=== PATIENT | male | born 1970 | race Caucasian/White ===

== ENCOUNTER 2020-10-08 08:46 | Emergency (ER) | payer SELFPAY ==
[2020-10-08] MEDS ORDERED: MORPHINE 4 MG/ML SYR ONE (09:42)
[2020-10-08] MEDS ORDERED: DIAZEPAM 2 MG TABLET ONE (09:42)
--- NOTE | 2020-10-08 10:44 | ER ---
Nurse's Notes [facility] Name: Oscar Rodriguez IV Age: 50 yrs Sex: Male : 1970 Arrival Date: 10/08/2020 Time: 08:50 Bed 15 Private MD: Diagnosis: Fracture of unspecified part of scapula, left shoulder;Fall on same level from slipping, tripping and stumbling with subsequent striking against other object Presentation: 10/08 09:23 Chief complaint: Patient states: slipped and fell in the bathtub last night, denies sv LOC. c/o left shoulder pain. Ibuprofen taken last night. Care prior to arrival: None. Mechanism of Injury: Fall from standing position. Trauma event details: Injury occurred in the [facility], Injury occurred: at home. Injury occurred: October 07, 2020. 09:23 Acuity: LINN 3 sv 09:23 Method Of Arrival: Ambulatory sv 09:24 Coronavirus screen: Client denies travel out of the [place] in the last 14 days. At this sv time, the client does not indicate any symptoms associated with coronavirus-19. Ebola Screen: No symptoms or risks identified at this time. Initial Sepsis Screen: Does the patient meet any 2 criteria? No. Patient's initial sepsis screen is negative. Does the patient have a suspected source of infection? No. Patient's initial sepsis screen is negative. Risk Assessment: Do you want to hurt yourself or someone else? Patient reports no desire to harm self or others. Onset of symptoms was October 07, 2020. Trauma Activation: Not Applicable Physician: ED Physician; Name: ; Notified At: ; Arrived At: Physician: General Surgeon; Name: ; Notified At: ; Arrived At: Physician: Radiology; Name: ; Notified At: ; Arrived At: Physician: Respiratory; Name: ; Notified At: ; Arrived At: Physician: Lab; Name: ; Notified At: ; Arrived At: Historical: - Allergies: : PENICILLINS; sv - PMHx: : None; sv - PSHx: : leg; sv - Immunization history:: Adult Immunizations up to date. - Social history:: Smoking status: Patient reports the use of cigarette tobacco products, denies chronic smoking, but will smoke occasionally. Screenin:25 Abuse screen: Denies threats or abuse. Denies injuries from another. Nutritional sv screening: No deficits noted. Tuberculosis screening: No symptoms or risk factors identified. Fall Risk None identified. Primary Survey: 09:23 NO uncontrolled hemorrhage observed. A: The patient is alert. Airway: patent, No sv supplemental oxygen in use on arrival. Oral cavity: clear, Trachea midline. Breathing/Chest: Respiratory pattern: regular, Respiratory effort: spontaneous, unlabored, Chest inspection: symmetrical rise and fall of the chest. Circulation: Skin color: pink, Skin temperature: warm, dry. Disability Alert. Exposure/Environment: All clothing and personal items were removed. Forensic evidence collection is not deemed to be indicated at this time. Items placed in patient belonging bag. There is no evidence of uncontrolled external bleeding. A warming method has been applied: A warm blanket has been provided to the patient. 10:20 Reassessment Airway Airway Patent Oxygen No O2 Oral cavity Clear Trachea Midline sv Breathing/Chest Respiratory pattern Regular Respiratory effort Spontaneous Unlabored Chest inspection Symmetrical Circulation Color [place] Temperature Warm Dry Disability Alert. Secondary Survey: :23 HEENT: No deficits noted. Gastrointestinal: No deficits noted. : No deficits noted. sv No signs and/or symptoms were reported regarding the genitourinary system. Musculoskeletal: Range of motion: limited in left shoulder. Vital Signs: 09:24 BP 154 / 100; Pulse 84; Resp 18; Pulse Ox 97% ; Weight 102.06 kg; Height 5 ft. 9 in. sv (175.26 cm); Pain 9/10; 09:24 Body Mass Index 33.23 (102.06 kg, 175.26 cm) sv [place] Coma Score: 09:24 Eye Response: spontaneous(4). Verbal Response: oriented(5). Motor Response: obeys sv commands(6). Total: 15. Trauma Score (Adult): 09:24 Eye Response: spontaneous(1); Verbal Response: oriented(1); Motor Response: obeys sv commands(2); Systolic BP: > 89 mm Hg(4); Respiratory Rate: 10 to 29 per min(4); [place] Score: 15; Trauma Score: 12 ED Course: 08:50 Patient arrived in ED. rg4 08:57 Mar[facility] Hogan F[facility]-C [facility]. snw 08:57 Osiel Ayala MD is Attending Physician. snw 09:23 Ashleigh Holly, ROMERO is Primary Nurse. sv 09:24 Triage completed. sv 09:24 Patient maintains SpO2 saturation greater than 95% on room air. Thermoregulation: warm sv blanket given to patient. 09:25 Arm band placed on. sv 09:25 Patient has correct armband on for positive identification. Bed in low position. Call sv light in reach. Pulse ox on. NIBP on. Door closed. Head of bed elevated. 09:43 Awaiting for x-ray. sv 10:33 Scapula Left XRAY In Process Unspecified. EDMS 10:33 Chest Pa And Lat (2 Views) XRAY In Process Unspecified. EDMS 10:43 Luther Trimble MD is Referral Physician. snw 11:21 Sling applied to left arm. sv 11:21 No provider procedures requiring assistance completed. Patient did not have IV access sv during this emergency room visit. Administered Medications: 09:36 Drug: morphine 4 mg {Note: rass1.} Route: IM; Site: right deltoid; sv 11:21 Follow up: Response: No adverse reaction; RASS: Alert and Calm (0) sv 09:36 Drug: Valium 2 mg Route: PO; sv 11:21 Follow up: Response: No adverse reaction sv Intake: 09:24 PO: 0ml; Total: 0ml. sv Output: 09:24 Urine: 0ml; Total: 0ml. sv Outcome: 10:44 Discharge ordered by MD. snw 11:21 Discharged to home ambulatory, with family. sv 11:21 Condition: stable 11:21 Discharge instructions given to patient, family, Instructed on discharge instructions, follow up and referral plans. no drinking with medication, no driving heavy equipment, medication usage, sling application Demonstrated understanding of instructions, follow-up care, medications, sling application Prescriptions given X 2. 11:21 Patient's length of stay was not longer than 2 hours. sv 11:22 Patient left the ED. sv Signatures: Dispatcher [employer] EDAshleigh Peace RN RN sv Waters, Shelly, SHIPPING TEAM LEADER-C SHIPPING TEAM LEADER-Faviola Peraza rg4 Corrections: (The following items were deleted from the chart) 19:52 19:51 Patient's length of stay was not longer than 2 hours. sv sv
--- NOTE | 2020-10-08 10:44 | EDPHYS ---
Physician Documentation [facility] Name: Oscar Rodriguez IV Age: 50 yrs Sex: Male : 1970 Arrival Date: 10/08/2020 Time: 08:50 Bed 15 Private MD: ED Physician Osiel Ayala HPI: 10/08 09:42 This 50 yrs old Male presents to ER via Ambulatory with complaints of Fall snw Injury, Arm Pain. 09:42 Details of fall: The patient fell from an upright position, slipped in shower and snw struck shoulder on tub ledge. Onset: The symptoms/episode began/occurred suddenly, last night. Associated injuries: The patient sustained left arm, contusion, decreased range of motion, painful injury. Severity of symptoms: At their worst the symptoms were moderate, severe. The patient has not experienced similar symptoms in the past. It is unknown whether or not the patient has recently seen a physician. Historical: - Allergies: 09:25 PENICILLINS; sv - PMHx: 09:25 None; sv - PSHx: 09:25 leg; sv - Immunization history:: Adult Immunizations up to date. - Social history:: Smoking status: Patient reports the use of cigarette tobacco products, denies chronic smoking, but will smoke occasionally. ROS: 09:41 Constitutional: Negative for fever, chills, and weight loss, Eyes: Negative for injury, snw pain, redness, and discharge, ENT: Negative for injury, pain, and discharge, Neck: Negative for injury, pain, and swelling, Cardiovascular: Negative for chest pain, palpitations, and edema, Respiratory: Negative for shortness of breath, cough, wheezing, and pleuritic chest pain, Abdomen/GI: Negative for abdominal pain, nausea, vomiting, diarrhea, and constipation, Back: Negative for injury and pain, : Negative for injury, bleeding, discharge, and swelling, Skin: Negative for injury, rash, and discoloration, Neuro: Negative for headache, weakness, numbness, tingling, and seizure, Psych: Negative for depression, anxiety, suicide ideation, homicidal ideation, and hallucinations. 09:41 MS/extremity: Positive for injury or acute deformity, decreased range of motion, pain, tenderness, of the left arm. Exam: 09:40 Head/Face: Normocephalic, atraumatic. Eyes: Pupils equal round and reactive to light, snw extra-ocular motions intact. Lids and lashes normal. Conjunctiva and sclera are non-icteric and not injected. Cornea within normal limits. Periorbital areas with no swelling, redness, or edema. ENT: Nares patent. No nasal discharge, no septal abnormalities noted. Tympanic membranes are normal and external auditory canals are clear. Oropharynx with no redness, swelling, or masses, exudates, or evidence of obstruction, uvula midline. Mucous membranes moist. Neck: Trachea midline, no thyromegaly or masses palpated, and no cervical lymphadenopathy. Supple, full range of motion without nuchal rigidity, or vertebral point tenderness. No Meningismus. Chest/axilla: Normal chest wall appearance and motion. Nontender with no deformity. No lesions are appreciated. Cardiovascular: Regular rate and rhythm with a normal S1 and S2. No gallops, murmurs, or rubs. Normal PMI, no JVD. No pulse deficits. Respiratory: Lungs have equal breath sounds bilaterally, clear to auscultation and percussion. No rales, rhonchi or wheezes noted. No increased work of breathing, no retractions or nasal flaring. Abdomen/GI: Soft, non-tender, with normal bowel sounds. No distension or tympany. No guarding or rebound. No evidence of tenderness throughout. Back: No spinal tenderness. No costovertebral tenderness. Full range of motion. Skin: Warm, dry with normal turgor. Normal color with no rashes, no lesions, and no evidence of cellulitis. Neuro: Awake and alert, GCS 15, oriented to person, place, time, and situation. Cranial nerves II-XII grossly intact. Motor strength 5/5 in all extremities. Sensory grossly intact. Cerebellar exam normal. Normal gait. Psych: Awake, alert, with orientation to person, place and time. Behavior, mood, and affect are within normal limits. 09:40 Constitutional: The patient appears alert, awake, uncomfortable. 09:40 Musculoskeletal/extremity: Extremities: grossly normal except: noted in the left axilla: decreased ROM, Circulation is intact in all extremities. Sensation intact. exquisite tenderness over left scapula s/p slip and fall in bathtub last pm. Vital Signs: 09:24 BP 154 / 100; Pulse 84; Resp 18; Pulse Ox 97% ; Weight 102.06 kg; Height 5 ft. 9 in. sv (175.26 cm); Pain 9/10; 09:24 Body Mass Index 33.23 (102.06 kg, 175.26 cm) sv [place] Coma Score: 09:24 Eye Response: spontaneous(4). Verbal Response: oriented(5). Motor Response: obeys sv commands(6). Total: 15. Trauma Score (Adult): 09:24 Eye Response: spontaneous(1); Verbal Response: oriented(1); Motor Response: obeys sv commands(2); Systolic BP: > 89 mm Hg(4); Respiratory Rate: 10 to 29 per min(4); [place] Score: 15; Trauma Score: 12 MDM: 09:14 Patient medically screened. snw 10:45 Data reviewed: vital signs, nurses notes, radiologic studies, plain films, + tip of snw left scapula fx. Data interpreted: Pulse oximetry: on room air is 97 %. Interpretation: normal. Counseling: I had a detailed discussion with the patient and/or guardian regarding: the historical points, exam findings, and any diagnostic results supporting the discharge/admit diagnosis, the presence of at least one elevated blood pressure reading (>120/80) during this emergency department visit, radiology results, the need for outpatient follow up, to return to the emergency department if symptoms worsen or persist or if there are any questions or concerns that arise at home. Special discussion: Based on the patient's history, exam, and Dx evaluation, there is no indication for emergent intervention or inpatient Tx. It is understood by the patient/guardian that if the Sx's persist or worsen they need to return immediately for re-evaluation. I have referred the patient to see his PCP for further evaluation of high blood pressure. Based on the history and exam findings, there is no indication for further emergent testing or inpatient evaluation. I discussed with the patient/guardian the need to see the orthopedic surgeon for further evaluation of the symptoms. I discussed with the patient/guardian the need to see the primary care provider for further evaluation of the symptoms. 10/08 09:21 Order name: Scapula Left XRAY; Complete Time: 11:13 snw 10/08 09:21 Order name: Chest Pa And Lat (2 Views) XRAY; Complete Time: 11:05 snw 01/04 10:42 Order name: Sling snw 10/08 10:46 Order name: INCENTIVE SPIROMETRY sn Administered Medications: 09:36 Drug: morphine 4 mg {Note: rass1.} Route: IM; Site: right deltoid; sv 11:21 Follow up: Response: No adverse reaction; RASS: Alert and Calm (0) sv 09:36 Drug: Valium 2 mg Route: PO; sv 11:21 Follow up: Response: No adverse reaction sv Disposition: 16:32 Co-signature as Attending Physician, Osiel Ayala MD I agree with the assessment and catrachito plan of care. Disposition: 10/08/20 10:44 Discharged to Home. Impression: Fracture of unspecified part of scapula, left shoulder, Fall on same level from slipping, tripping and stumbling with subsequent striking against other object. - Condition is Stable. - Discharge Instructions: Scapular Fracture, Incentive Spirometer, How to Use a Sling. - Prescriptions for Mobic 7.5 mg Oral Tablet - take 1 tablet by ORAL route once daily take with food; 20 tablet. Tylenol- Codeine #3 300-30 mg Oral Tablet - take 2 tablet by ORAL route every 6 hours As needed; 30 tablet. - Work release form, Medication Reconciliation Form, Thank You Letter, Antibiotic Education, Prescription Opioid Use form. - Follow up: Emergency Department; When: As needed; Reason: Worsening of condition. Follow up: Private Physician; When: 1 - 2 days; Reason: Recheck today's complaints, Continuance of care, Re-evaluation by your physician. Follow up: Luther Trimble MD; When: 2 - 3 days; Reason: Recheck today's complaints, Continuance of care. Signatures: Dispatcher [employer] Ashleigh Pinzon RN RN sv Anderson, Corey, MD MD cha Waters, Shelly, TEACHER INSTRUMENTAL-C TEACHER INSTRUMENTAL-Csnw Corrections: (The following items were deleted from the chart) 11:22 10:44 10/08/2020 10:44 Discharged to Home. Impression: Fracture of unspecified part of sv scapula, left shoulder; Fall on same level from slipping, tripping and stumbling with subsequent striking against other object. Condition is Stable. Forms are Medication Reconciliation Form, Thank You Letter, Antibiotic Education, Prescription Opioid Use. Follow up: Emergency Department; When: As needed; Reason: Worsening of condition. Follow up: Private Physician; When: 1 - 2 days; Reason: Recheck today's complaints, Continuance of care, Re-evaluation by your physician. Follow up: Luther Trimble; When: 2 - 3 days; Reason: Recheck today's complaints, Continuance of care. hortencia
--- NOTE | 2020-10-08 11:03 | RAD REPORT ---
EXAM DESCRIPTION: RAD - Chest Pa And Lat (2 Views) - 10/08/2020 10:35 am CLINICAL HISTORY: BLUNT CHEST TRAUMA Chest pain. COMPARISON: Scapula Left dated 10/08/2020 FINDINGS: The lungs are clear. The heart is normal in size. No displaced fractures. IMPRESSION: No acute or concerning finding suspected.
--- NOTE | 2020-10-08 11:04 | RAD REPORT ---
EXAM DESCRIPTION: RAD - Scapula Left - 10/08/2020 10:40 am CLINICAL HISTORY: PAIN COMPARISON: No comparisons FINDINGS: Mild glenohumeral and AC joint degenerative changes. Oblique lucency in the very inferior aspect of the scapula is compatible with a fracture. IMPRESSION: Mild oblique fracture inferior most aspect of the scapula.
== END 2020-10-08 11:22 | disposition home or self-care (01) ==
LOC: ER 08:46
PROC: 2W39X1Z Immobilization of Left Upper Extremity using Splint (ICD-10-PCS; principal; 2020-10-08)
DX: S42.102A Fracture of unspecified part of scapula, left shoulder, initial encounter for closed fracture (principal); W01.198A Fall on same level from slipping, tripping and stumbling with subsequent striking against other object, initial encounter; Y93.E1 Activity, personal bathing and showering; Y92.002 Bathroom of unspecified non-institutional (private) residence as the place of occurrence of the external cause; Z88.0 Allergy status to penicillin; F17.210 Nicotine dependence, cigarettes, uncomplicated
CPT/HCPCS: 71046; 73010; 96372; 99284

== ENCOUNTER 2021-08-30 11:34 | Emergency (ER) | payer SELFPAY ==
--- NOTE | 2021-08-30 13:32 | RAD REPORT ---
EXAM DESCRIPTION: Meredith Single View08/30/2021 1:10 pm CLINICAL HISTORY: Cough COMPARISON: October 2020 FINDINGS: The lungs appear clear of acute infiltrate. The heart is probably mildly enlarged IMPRESSION: No acute abnormalities displayed
--- NOTE | 2021-08-30 13:47 | ER ---
Nurse's Notes [facility] Name: Oscar Rodriguez IV Age: 51 yrs Sex: Male : 1970 Arrival Date: 08/30/2021 Time: 11:35 Bed 10 Private MD: Felix Ricci Diagnosis: Acute bronchitis, unspecified;Cough Presentation: 08/30 11:40 Chief complaint: Patient states: productive cough that began Last Thursday. Denies fever. ss Coronavirus screen: Client denies travel out of the [place] in the last 14 days. Client presents with at least one sign or symptom that may indicate coronavirus-19. Ebola Screen: Patient denies exposure to infectious person. Patient denies travel to an Ebola-affected area in the 21 days before illness onset. Resp Distress? No respiratory distress is noted at this time. Initial Sepsis Screen: Does the patient meet any 2 criteria? No. Patient's initial sepsis screen is negative. Does the patient have a suspected source of infection? No. Patient's initial sepsis screen is negative. Risk Assessment: Do you want to hurt yourself or someone else? Patient reports no desire to harm self or others. Onset of symptoms was August 23, 2021. 11:40 Method Of Arrival: Ambulatory ss 11:40 Acuity: LINN 4 ss Historical: - Allergies: 11:41 PENICILLINS; ss - Home Meds: 11:41 None [Active]; ss - PMHx: 11:41 None; ss - PSHx: 11:41 None; ss - Immunization history:: Client reports receiving the 2nd dose of the Covid vaccine. - Social history:: Smoking status: Patient reports the use of cigarette tobacco products, denies chronic smoking, but will smoke occasionally. Screenin:43 Abuse screen: Denies threats or abuse. Denies injuries from another. Nutritional ss screening: No deficits noted. Tuberculosis screening: Never had TB. Fall Risk None identified. Assessment: 11:45 General: Appears in no apparent distress. comfortable, Behavior is calm, cooperative, ss Denies fever, feeling ill, fatigue, chills. Pain: Denies pain. Neuro: Level of Consciousness is awake, alert, obeys commands, Oriented to person, place, time, situation, Speech is normal. Cardiovascular: Capillary refill < 3 seconds is brisk in bilateral fingers Patient's skin is warm and dry. Respiratory: Reports cough that is since x 1 week Airway is patent Respiratory effort is even, unlabored, Respiratory pattern is regular, symmetrical, Breath sounds are clear bilaterally. GI: Patient currently denies abdominal pain, diarrhea, nausea, vomiting. EENT: Oral mucosa is moist. Throat is clear. Derm: Skin is intact, is healthy with good turgor, Skin is pink, warm \T\ dry. normal. Vital Signs: 11:40 Weight 104.33 kg; Height 5 ft. 9 in. (175.26 cm); Pain 0/10; ss 11:42 Pulse 75; Resp 16; Temp 98.1(TE); Pulse Ox 95% on R/A; ss 11:44 BP 184 / 101; ss 11:40 Body Mass Index 33.96 (104.33 kg, 175.26 cm) ss ED Course: 11:35 Patient arrived in ED. as 11:36 Felix Ricci is Private Physician. as 11:41 Triage completed. ss 11:41 Arm band placed on right wrist. ss 11:43 Patient has correct armband on for positive identification. Bed in low position. Call ss light in reach. 11:47 Jordi Durant MD is Attending Physician. kdr 13:10 CXR XRAY In Process Unspecified. EDMS 13:54 Jaqui Cannon, ROMERO is Primary Nurse. ss 13:54 No provider procedures requiring assistance completed. Patient did not have IV access ss during this emergency room visit. Administered Medications: No medications were administered Outcome: 13:46 Discharge ordered by . kdr 13:54 Discharged to home ambulatory. ss 13:54 Condition: good 13:54 Discharge instructions given to patient, Instructed on discharge instructions, follow up and referral plans. Demonstrated understanding of instructions, follow-up care, medications. 13:55 Patient left the ED. ss Signatures: Dispatcher [employer] EDMS Jordi Durant MD MD kdr Abiola Grullon as Jaqui Cannon, ROMERO RN ss
--- NOTE | 2021-08-30 13:47 | EDPHYS ---
Physician Documentation [facility] Name: Oscar Rodriguez IV Age: 51 yrs Sex: Male : 1970 Arrival Date: 08/30/2021 Time: 11:35 Bed 10 Private MD: Felix Ricci ED Physician Jordi Durant HPI: 08/30 12:46 This 51 yrs old Male presents to ER via Ambulatory with complaints of Cough, Congestion.kdr 12:46 The patient or guardian reports cough, that is intermittent, described as mild, kdr difficulty breathing. Onset: The symptoms/episode began/occurred gradually, 1 week(s) ago. Severity of symptoms: At their worst the symptoms were mild, moderate, just prior to arrival, in the emergency department the symptoms are unchanged. Associated signs and symptoms: The patient has no apparent associated signs or symptoms. The patient has not experienced similar symptoms in the past. The patient has not recently seen a physician. Patient states that over the past week he has had increasing cough and congestion. He has had chills and rigors but no fever. He is concerned that he may have a sinus infection. He is unvaccinated for Covid.. Historical: - Allergies: 11:41 PENICILLINS; ss - Home Meds: 11:41 None [Active]; ss - PMHx: 11:41 None; ss - PSHx: 11:41 None; ss - Immunization history:: Client reports receiving the 2nd dose of the Covid vaccine. - Social history:: Smoking status: Patient reports the use of cigarette tobacco products, denies chronic smoking, but will smoke occasionally. ROS: 12:46 Constitutional: Negative for fever, chills, and weight loss, Eyes: Negative for injury, kdr pain, redness, and discharge, ENT: Negative for injury, pain, and discharge, Neck: Negative for injury, pain, and swelling, Cardiovascular: Negative for chest pain, palpitations, and edema, Abdomen/GI: Negative for abdominal pain, nausea, vomiting, diarrhea, and constipation, Back: Negative for injury and pain, MS/Extremity: Negative for injury and deformity, Skin: Negative for injury, rash, and discoloration, Neuro: Negative for headache, weakness, numbness, tingling, and seizure activity. Psych: Negative for depression, anxiety, suicide ideation, homicidal ideation, and hallucinations, Allergy/Immunology: Negative for hives, rash, and allergies, Endocrine: Negative for neck swelling, polydipsia, polyuria, polyphagia, and marked weight changes, Hematologic/Lymphatic: Negative for swollen nodes, abnormal bleeding, and unusual bruising. 12:46 Respiratory: Positive for cough, with yellow sputum, wheezing, inspiratory, of the right posterior upper lobe, right posterior middle lobe and right posterior lower lobe, Negative for hemoptysis, orthopnea, pleurisy. Exam: 12:46 Constitutional: This is a well developed, well nourished patient who is awake, alert, kdr and in no acute distress. Head/Face: Normocephalic, atraumatic. Eyes: Pupils equal round and reactive to light, extra-ocular motions intact. Lids and lashes normal. Conjunctiva and sclera are non-icteric and not injected. Cornea within normal limits. Periorbital areas with no swelling, redness, or edema. Neck: Trachea midline, no thyromegaly or masses palpated, and no cervical lymphadenopathy. Supple, full range of motion without nuchal rigidity, or vertebral point tenderness. No Meningismus. Chest/axilla: Normal chest wall appearance and motion. Nontender with no deformity. No lesions are appreciated. Cardiovascular: Regular rate and rhythm with a normal S1 and S2. No gallops, murmurs, or rubs. Normal PMI, no JVD. No pulse deficits. Abdomen/GI: Soft, non-tender, with normal bowel sounds. No distension or tympany. No guarding or rebound. No evidence of tenderness throughout. Back: No spinal tenderness. No costovertebral tenderness. Full range of motion. Skin: Warm, dry with normal turgor. Normal color with no rashes, no lesions, and no evidence of cellulitis. MS/ Extremity: Pulses equal, no cyanosis. Neurovascular intact. Full, normal range of motion. Neuro: Awake and alert, GCS 15, oriented to person, place, time, and situation. Cranial nerves II-XII grossly intact. Motor strength 5/5 in all extremities. Sensory grossly intact. Cerebellar exam normal. Normal gait. Psych: Awake, alert, with orientation to person, place and time. Behavior, mood, and affect are within normal limits. 12:46 Respiratory: the patient does not display signs of respiratory distress, Respirations: normal, Breath sounds: wheezing: inspiratory is scattered, is heard in the right posterior upper lobe, right posterior middle lobe and right posterior lower lobe. Vital Signs: 11:40 Weight 104.33 kg; Height 5 ft. 9 in. (175.26 cm); Pain 0/10; ss 11:42 Pulse 75; Resp 16; Temp 98.1(TE); Pulse Ox 95% on R/A; ss 11:44 BP 184 / 101; ss 11:40 Body Mass Index 33.96 (104.33 kg, 175.26 cm) ss MDM: 12:46 Data reviewed: vital signs, nurses notes, lab test result(s), radiologic studies. kdr Counseling: I had a detailed discussion with the patient and/or guardian regarding: the historical points, exam findings, and any diagnostic results supporting the discharge/admit diagnosis, lab results, radiology results. 13:46 Patient medically screened. kdr 08/30 12:12 Order name: SARS-COV-2 RT PCR; Complete Time: 13:24 EDAR 08/30 12:42 Order name: CXR XRAY; Complete Time: 13:45 kdr Administered Medications: No medications were administered Disposition Summary: 08/30/21 13:46 Discharge Ordered Location: Home kdr Problem: new kdr Symptoms: have improved kdr Condition: Stable kdr Diagnosis - Acute bronchitis, unspecified kdr - Cough kdr Followup: kdr - With: Private Physician - When: 2 - 3 days - Reason: If symptoms return, Further diagnostic work-up, Recheck today's complaints, Continuance of care, Re-evaluation by your physician Discharge Instructions: - Discharge Summary Sheet kdr - Acute Bronchitis, Adult kdr - Cough, Adult kdr Forms: - Medication Reconciliation Form kdr - Thank You Letter kdr Prescriptions: - Promethazine VC-Codeine 6.25-5-10 mg/5 mL Oral syrup - take 5 milliliter by ORAL route every 4-6 hours As needed as needed, not to kdr exceed 30 mL in 24 hours; 200 milliliter; Refills: 0, Product Selection Permitted - Medrol (Aleksandr) 4 mg Oral Tablets, Dose Pack - take 1 tablet by ORAL route as directed - follow package instructions; 1 kdr packet; Refills: 0, Product Selection Permitted Signatures: Dispatcher [employer] EDAR Rittger, Jordi, MD MD kdr Smirch, Jaqui, RN RN ss Corrections: (The following items were deleted from the chart) 12:12 11:49 CORONAVIRUS+.BRZ ordered. EDMS EDMS
[2021-08-30 14:02] VITALS: TEMP 98.1; O2SAT 95
[2021-08-30 14:03] VITALS: BP 184/101
== END 2021-08-30 13:55 | disposition home or self-care (01) ==
LOC: ER 11:34
DX: J20.9 Acute bronchitis, unspecified (principal); F17.210 Nicotine dependence, cigarettes, uncomplicated; Z20.822 Contact with and (suspected) exposure to COVID-19; Z88.0 Allergy status to penicillin
CPT/HCPCS: 71045; 99283; U0003

== ENCOUNTER 2024-06-04 21:07 | Emergency (ER) | payer SELFPAY ==
[2024-06-04] MEDS ORDERED: METHYLPREDNISOLONE 125 MG INJ ONE (21:10)
[2024-06-04] MEDS ORDERED: ALBUTEROL 2.5 MG/3 ML NEB SOL ONE (21:10)
[2024-06-04] MEDS ORDERED: FAMOTIDINE 20 MG/2 ML VIAL IV ONE ×2 (21:10→21:58)
[2024-06-04] MEDS ORDERED: DIPHENHYDRAMINE 50 MG/ML VIAL ONE (21:10)
[2024-06-04] MEDS ORDERED: NA CHLORIDE 0.9% 1,000 ML ONE (21:10)
[2024-06-04 21:39] LABS: Anion Gap 9.8 mEq/L (5.0-15.0); Potassium 4.8 mEq/L (3.5-5.1)
--- NOTE | 2024-06-04 23:15 | EDPHYS ---
Physician Documentation [facility] Name: Oscar Rodriguez IV Age: 53 yrs Sex: Male : 1970 Arrival Date: 06/04/2024 Time: 21:07 Bed 4 Private MD: ED Physician Connor Gregorio HPI: 06/04 21:14 This 53 yrs old Male presents to ER via Unassigned with complaints of acute sp4 allergic reaction . 06/05 00:24 53 -year-old male presents with acute diffuse redness and skin hives associated with sp4 patient with shortness of breath after he ate spices at the restaurant. Historical: - Allergies: 06/04 21:15 PENICILLINS; jj7 21:15 FOOD COLORING; jj7 - PMHx: 21:15 None; jj7 - PSHx: 21:15 BROKEN BONES (BILAT KNEES, ARMS, LEGS; jj7 - Immunization history:: Adult Immunizations not up to date, Client reports having NOT received the Covid vaccine. - Infectious Disease History:: Denies. - Social history:: Smoking status: Reported history of juuling and/or vaping. Patient/guardian denies using alcohol, street drugs, IV drugs. - Family history:: not pertinent. ROS: 06/05 00:24 Constitutional: Negative for fever, chills, and weight loss, positive skin rash sp4 positive hives positive redness , positive sensation of closing throat All other systems are negative, Exam: 00:24 Constitutional: This is a well developed, well nourished patient who is awake, alert, sp4 and in no acute distress. Head/Face: Normocephalic, atraumatic. Eyes: Pupils equal round and reactive to light, extra-ocular motions intact. Lids and lashes normal. Conjunctiva and sclera are not injected. Cornea within normal limits. Periorbital areas with no swelling, redness, or edema. ENT: Nares patent. No nasal discharge, no septal abnormalities noted. Tympanic membranes are normal and external auditory canals are clear. Oropharynx with no redness, swelling, or masses, exudates, or evidence of obstruction, uvula midline. Mucous membranes moist. Neck: Trachea midline, no thyromegaly or masses palpated, and no cervical lymphadenopathy. Supple, full range of motion without nuchal rigidity, or vertebral point tenderness. Chest/axilla: Normal chest wall appearance and motion. Nontender with no deformity. No lesions are appreciated. Cardiovascular: Regular rate and rhythm with a normal S1 and S2. No gallops, murmurs, or rubs. Normal PMI, no JVD. No pulse deficits. Respiratory: Lungs have equal breath sounds bilaterally, clear to auscultation and percussion. No rales, rhonchi or wheezes noted. No increased work of breathing, no retractions or nasal flaring. Abdomen/GI: Soft, with normal bowel sounds. No distension or tympany. No guarding or rebound. No evidence of tenderness throughout. Back: No spinal tenderness. No costovertebral tenderness. Skin: Warm, dry with normal turgor. Diffuse redness and diffuse allergic hives throughout. Including facial and bilateral eyelid swelling MS/ Extremity: Pulses equal, no cyanosis. Neurovascular intact. Full, normal range of motion. Neuro: Awake and alert, GCS 15, oriented to person, place, time, and situation. Cranial nerves II-XII grossly intact. Motor strength 5/5 in all extremities. Sensory grossly intact. Psych: Awake, alert, with orientation to person, place and time. Behavior, mood, and affect are within normal limits Vital Signs: 06/04 21:07 BP 149 / 76; Pulse 104; Resp 22; Temp 98.2; Pulse Ox 96% ; Weight 97.52 kg; Height 5 jj7 ft. 9 in. ; 22:30 BP 120 / 58; Pulse 84; Resp 18; Pulse Ox 95% on R/A; cp4 23:30 BP 136 / 60; Pulse 87; Resp 18; Pulse Ox 95% on R/A; cp4 21:07 Body Mass Index 31.75 (97.52 kg, 175.26 cm) jj7 [place] Coma Score: 06/05 00:24 Eye Response: spontaneous(4). Motor Response: obeys commands(6). Verbal Response: sp4 oriented(5). Total: 15. MDM: 06/04 21:27 Patient medically screened. sp4 06/05 00:26 Differential Diagnosis altered mental status, sepsis, flu, Acute allergic reaction. sp4 Data reviewed: vital signs, nurses notes, old medical records, lab test result(s). ED course: Positive acute allergic reaction. Patient has improved and is stable for discharge home. 06/04 21:10 Order name: BMP; Complete Time: 21:43 sp4 06/04 21:10 Order name: Saline Lock; Complete Time: 21:17 sp4 Administered Medications: 06/04 21:16 Drug: diphenhydrAMINE IVP 50 mg IVP once Route: IVP; Site: right antecubital; vc1 21:40 Follow up: Response: No adverse reaction cp4 21:16 Drug: MethylPrednisoLONE IVP 125 mg IVP once Route: IVP; Site: right antecubital; vc1 21:40 Follow up: Response: No adverse reaction cp4 21:16 Drug: NS 0.9% IV 1000 ml IV at 1 bolus Per protocol; 1000 mL bolus Route: IV; Rate: 1 vc1 bolus; Site: right antecubital; 22:20 Follow up: Response: No adverse reaction; IV Status: Completed infusion cp4 21:16 Drug: Famotidine IVP 20 mg IVP once; dilute with 10 mL 0.9% NaCl; give over 2 minutes vc1 Route: IVP; Site: right antecubital; 21:40 Follow up: Response: No adverse reaction cp4 21:17 Drug: Albuterol Inhalation 2.5 mg Inhalation every 20 minutes x3 Route: Inhalation; vc1 21:37 Drug: Albuterol Inhalation 2.5 mg Inhalation every 20 minutes x3 Route: Inhalation; cp4 21:53 Not Given (Physician Discretion): [id number] mg IVP once cp4 21:56 Drug: Albuterol Inhalation 2.5 mg Inhalation every 20 minutes x3 Route: Inhalation; cp4 22:20 Follow up: Response: No adverse reaction cp4 21:57 Drug: Famotidine IVP 20 mg IVP once; dilute with 10 mL 0.9% NaCl; give over 2 minutes cp4 Route: IVP; Site: right antecubital; 22:20 Follow up: Response: No adverse reaction cp4 Disposition Summary: 06/04/24 23:14 Discharge Ordered Notes: Location: Home sp4 Problem: new sp4 Symptoms: have improved sp4 Condition: Stable sp4 Diagnosis - Acute allergic reaction, acute allergic hives sp4 Followup: sp4 - With: Private Physician - When: 7 - 10 days - Reason: Recheck today's complaints Discharge Instructions: - Discharge Summary Sheet sp4 - Hives, [id number] sp4 Forms: - Patient Portal Instructions sp4 Prescriptions: - EpiPen 0.3 mg/0.3 mL Injection Auto-Injector - administer 0.3 milliliter INTRAMUSCULAR route every 4 hours as needed for sp4 anaphylaxis, Dispense 2-Pack; 1 Pack; Refills: 0, Product Selection Permitted - Prednisone 20 mg Oral Tablet - take 2 tablets ORAL route once daily for 5 days; 10 tablet; Refills: 0, Product sp4 Selection Permitted Signatures: Dispatcher [employer] EDMS Dyana Bueno RN RN vc1 Savanah Chao RN RN jj7 Connor Gregorio MD MD sp4 Susie Newman Corrections: (The following items were deleted from the chart) 06/05 00:27 00:24 Constitutional: This is a well developed, well nourished patient who is awake, sp4 alert, and in no acute distress. Head/Face: Normocephalic, atraumatic. Eyes: Pupils equal round and reactive to light, extra-ocular motions intact. Lids and lashes normal. Conjunctiva and sclera are not injected. Cornea within normal limits. Periorbital areas with no swelling, redness, or edema. ENT: Nares patent. No nasal discharge, no septal abnormalities noted. Tympanic membranes are normal and external auditory canals are clear. Oropharynx with no redness, swelling, or masses, exudates, or evidence of obstruction, uvula midline. Mucous membranes moist. Neck: Trachea midline, no thyromegaly or masses palpated, and no cervical lymphadenopathy. Supple, full range of motion without nuchal rigidity, or vertebral point tenderness. Chest/axilla: Normal chest wall appearance and motion. Nontender with no deformity. No lesions are appreciated. Cardiovascular: Regular rate and rhythm with a normal S1 and S2. No gallops, murmurs, or rubs. Normal PMI, no JVD. No pulse deficits. Respiratory: Lungs have equal breath sounds bilaterally, clear to auscultation and percussion. No rales, rhonchi or wheezes noted. No increased work of breathing, no retractions or nasal flaring. Abdomen/GI: Soft, with normal bowel sounds. No distension or tympany. No guarding or rebound. No evidence of tenderness throughout. Back: No spinal tenderness. No costovertebral tenderness. Skin: Warm, dry with normal turgor. Normal color with no rashes, no lesions, and no evidence of cellulitis. MS/ Extremity: Pulses equal, no cyanosis. Neurovascular intact. Full, normal range of motion. Neuro: Awake and alert, GCS 15, oriented to person, place, time, and situation. Cranial nerves II-XII grossly intact. Motor strength 5/5 in all extremities. Sensory grossly intact. Psych: Awake, alert, with orientation to person, place and time. Behavior, mood, and affect are within normal limits sp4
--- NOTE | 2024-06-04 23:15 | ER ---
Nurse's Notes [facility] Name: Oscar Rodriguez IV Age: 53 yrs Sex: Male : 1970 Arrival Date: 06/04/2024 Time: 21:07 Bed 4 Private MD: Diagnosis: Acute allergic reaction, acute allergic hives Presentation: 06/04 21:07 Chief complaint: Patient states: ALLERGIC REACTION TO A FOOD COLORING THAT HIS SIG jj7 OTHER PUT IN THEIR FOOD TONIGHT. Coronavirus screen: At this time, the client does not indicate any symptoms associated with coronavirus-19. Ebola Screen: No symptoms or risks identified at this time. Initial Sepsis Screen: Does the patient meet any 2 criteria? HR > 90 bpm. Yes Does the patient have a suspected source of infection? No. Patient's initial sepsis screen is negative. Risk Assessment: Do you want to hurt yourself or someone else? Patient reports no desire to harm self or others. Onset of symptoms was June 04, 2024 at 20:10. 21:07 Method Of Arrival: Ambulatory [facility] 21:07 Acuity: LINN 3 jj7 Triage Assessment: 21:07 General: Appears distressed, uncomfortable, Behavior is calm, cooperative, appropriate jj7 for age. Pain: Denies pain. EENT: Reports difficulty swallowing nasal discharge THROAT SWELLING. Respiratory: Reports shortness of breath. Derm: Skin is red, Reports burning, itching. Historical: - Allergies: 21:15 PENICILLINS; jj7 21:15 FOOD COLORING; jj7 - PMHx: 21:15 None; jj7 - PSHx: 21:15 BROKEN BONES (BILAT KNEES, ARMS, LEGS; jj7 - Immunization history:: Adult Immunizations not up to date, Client reports having NOT received the Covid vaccine. - Infectious Disease History:: Denies. - Social history:: Smoking status: Reported history of juuling and/or vaping. Patient/guardian denies using alcohol, street drugs, IV drugs. - Family history:: not pertinent. Screenin:15 [facility] ED Fall Risk Assessment (Adult) History of falling in the last 3 months, cp4 including since admission No falls in past 3 months (0 pts) Confusion or Disorientation No (0 pts) Intoxicated or Sedated No (0 pts) Impaired Gait No (0 pts) Mobility Assist Device Used No (0 pt) Altered Elimination No (0 pt) Score/Fall Risk Level 0 - 2 = Low Risk Oriented to surroundings, Maintained a safe environment, Assessed \T\ reinforced patient's understanding of fall precautions, Hourly rounding (assess needs \T\ fall precautionary measures) done. Abuse screen: Denies threats or abuse. Nutritional screening: No deficits noted. Tuberculosis screening: No symptoms or risk factors identified. Assessment: 21:15 General: Appears distressed, uncomfortable, Behavior is cooperative, appropriate for cp4 age, anxious. Pain: Denies pain. Neuro: Level of Consciousness is awake, alert, obeys commands, Oriented to person, place, time, situation. Cardiovascular: Rhythm is sinus tachycardia. Respiratory: Reports shortness of breath at rest Airway is patent Respiratory effort is even, unlabored, Breath sounds are clear bilaterally. GI: No signs and/or symptoms were reported involving the gastrointestinal system. : No signs and/or symptoms were reported regarding the genitourinary system. EENT: No signs and/or symptoms were reported regarding the EENT system. Derm: Skin is intact, Skin is dry, Skin is red. Musculoskeletal: No signs and/or symptoms reported regarding the musculoskeletal system. 22:45 Reassessment: Patient appears in no apparent distress at this time. Patient and/or cp4 family updated on plan of care and expected duration. Pain level reassessed. Patient is alert, oriented x 3, equal unlabored respirations, skin warm/dry/pink. Patient's redness on arms has cleared. Face and chest are still a little red. Patient states he feels much better. Vital Signs: 21:07 BP 149 / 76; Pulse 104; Resp 22; Temp 98.2; Pulse Ox 96% ; Weight 97.52 kg; Height 5 jj7 ft. 9 in. ; 22:30 BP 120 / 58; Pulse 84; Resp 18; Pulse Ox 95% on R/A; cp4 23:30 BP 136 / 60; Pulse 87; Resp 18; Pulse Ox 95% on R/A; cp4 21:07 Body Mass Index 31.75 (97.52 kg, 175.26 cm) j7 [place] Coma Score: 06/05 00:24 Eye Response: spontaneous(4). Motor Response: obeys commands(6). Verbal Response: sp4 oriented(5). Total: 15. ED Course: 06/04 21:07 Arm band placed on right wrist. Patient placed in an exam room, on a stretcher, on jj7 child monitor, on pulse oximetry. 21:08 Patient arrived in ED. vc1 21:09 Connor Gregorio MD is Attending Physician. sp4 21:14 Susie Newman is Primary Nurse. cp4 21:15 Triage completed. jj7 21:15 Inserted saline lock: 18 gauge in right antecubital area, using aseptic technique. cp4 Blood collected. Flushed with 10 mL NS. 21:15 No provider procedures requiring assistance completed. cp4 21:15 Placed in gown. Bed in low position. Call light in reach. Side rails up X2. cp4 23:29 intact, bleeding controlled, No redness/swelling at site. Pressure dressing applied. cp4 23:29 Provided Education on: allergic reaction. cp4 Administered Medications: 21:16 Drug: diphenhydrAMINE IVP 50 mg IVP once Route: IVP; Site: right antecubital; vc1 21:40 Follow up: Response: No adverse reaction cp4 21:16 Drug: MethylPrednisoLONE IVP 125 mg IVP once Route: IVP; Site: right antecubital; vc1 21:40 Follow up: Response: No adverse reaction cp4 21:16 Drug: NS 0.9% IV 1000 ml IV at 1 bolus Per protocol; 1000 mL bolus Route: IV; Rate: 1 vc1 bolus; Site: right antecubital; 22:20 Follow up: Response: No adverse reaction; IV Status: Completed infusion cp4 21:16 Drug: Famotidine IVP 20 mg IVP once; dilute with 10 mL 0.9% NaCl; give over 2 minutes vc1 Route: IVP; Site: right antecubital; 21:40 Follow up: Response: No adverse reaction cp4 21:17 Drug: Albuterol Inhalation 2.5 mg Inhalation every 20 minutes x3 Route: Inhalation; vc1 21:37 Drug: Albuterol Inhalation 2.5 mg Inhalation every 20 minutes x3 Route: Inhalation; cp4 21:53 Not Given (Physician Discretion): [id number] mg IVP once cp4 21:56 Drug: Albuterol Inhalation 2.5 mg Inhalation every 20 minutes x3 Route: Inhalation; cp4 22:20 Follow up: Response: No adverse reaction cp4 21:57 Drug: Famotidine IVP 20 mg IVP once; dilute with 10 mL 0.9% NaCl; give over 2 minutes cp4 Route: IVP; Site: right antecubital; 22:20 Follow up: Response: No adverse reaction cp4 Medication: 21:15 VIS not applicable for this client. cp4 Outcome: 23:14 Discharge ordered by . sp4 23:29 Discharged to home ambulatory, cp4 23:29 Condition: stable 23:29 Discharge instructions given to patient, Instructed on discharge instructions, follow up and referral plans. medication usage, Demonstrated understanding of instructions, follow-up care, medications, Prescriptions given X 2, 23:30 Patient left the ED. cp4 Signatures: Dyana Bueno RN RN vc1 Savanah Chao RN RN jj7 Connor Gregorio MD MD sp4 Susie Newman cp4 Corrections: (The following items were deleted from the chart) 21:54 21:54 Albuterol Inhalation 2.5 mg Inhalation cp4 cp4
[2024-06-04 23:38] VITALS: TEMP 98.2
[2024-06-04 23:39] VITALS: O2SAT 95
[2024-06-04 23:41] VITALS: BP 136/60
== END 2024-06-04 23:30 | disposition home or self-care (01) ==
LOC: ER 21:07
DX: L50.0 Allergic urticaria (principal); Z88.0 Allergy status to penicillin; Z91.02 Food additives allergy status
CPT/HCPCS: 36415; 80048; 96361; 96374; 96375; 99285; J1200; J2919; J7030; J7613